=== PATIENT | female | born 1955 | race Caucasian/White ===

== ENCOUNTER 2022-02-01 14:56 | Outpatient (RCR) | payer MEDICARE, BC, SELFPAY ==
[2022-02-01] MEDS: SODIUM CHLORIDE 0.9 % (FLUSH) 10 ML SYRINGE IVF (15:28)
[2022-02-01] MEDS: HEPARIN 500 UNIT/5 ML SYRINGE IVF (15:28)
== END 2022-02-18 23:59 | disposition home or self-care (01) ==
LOC: CCIC 14:56
PROVIDERS: Visit Provider Clinical Nurse Specialist
DX: Z45.2 Encounter for adjustment and management of vascular access device (principal)
CPT/HCPCS: 99211; J1642

== ENCOUNTER 2022-04-12 16:05 | Outpatient (CLI) | payer MEDICARE, BC, SELFPAY ==
[2022-04-12 21:56] LABS: Chloride* 101 mmol/L (96-114); Sodium* 137 mmol/L (135-149)
[2022-04-12 21:57] LABS: Potassium* 4.6 mmol/L (3.6-5.1)
[2022-04-12 21:59] LABS: Creatinine* 0.9 mg/dL (0.5-1.5); Estimated Glomerular Filt Rate 71 ml/min
[2022-04-12 22:00] LABS: Blood Urea Nitrogen* 9 mg/dL (7-30); Calcium* 9.6 mg/dL (8.4-10.6); Carbon Dioxide* 27 mmol/L (20-32); Glucose* 103 mg/dL (60-115)
== END 2022-04-12 16:06 | disposition home or self-care (01) ==
PROVIDERS: Visit Provider Student in an Organized Health Care Education/Training Program
DX: M79.10 Myalgia, unspecified site (principal); R53.83 Other fatigue; Z11.9 Encounter for screening for infectious and parasitic diseases, unspecified
CPT/HCPCS: 80048; 86618

== ENCOUNTER 2022-08-08 11:30 | Outpatient (RCR) | payer MEDICARE, BC, SELFPAY ==
[2022-03-06] MEDS: HEPARIN 500 UNIT/5 ML SYRINGE IVF (14:27)
[2022-03-06] MEDS: SODIUM CHLORIDE 0.9 % (FLUSH) 10 ML SYRINGE IVF (14:28)
[2022-04-12] MEDS: SODIUM CHLORIDE 0.9 % (FLUSH) 10 ML SYRINGE IVF (14:07)
[2022-04-12] MEDS: HEPARIN 500 UNIT/5 ML SYRINGE IVF (14:07)
[2022-06-28] MEDS: HEPARIN 500 UNIT/5 ML SYRINGE IVF (14:51)
[2022-06-28] MEDS: SODIUM CHLORIDE 0.9 % (FLUSH) 10 ML SYRINGE IVF (14:51)
[2022-08-08] MEDS: SODIUM CHLORIDE 0.9 % (FLUSH) 10 ML SYRINGE IVF (11:44)
[2022-08-08] MEDS: HEPARIN 500 UNIT/5 ML SYRINGE IVF (11:44)
== END 2022-09-02 23:59 | disposition home or self-care (01) ==
LOC: CCIC 11:30
PROVIDERS: Visit Provider Clinical Nurse Specialist
DX: Z45.2 Encounter for adjustment and management of vascular access device (principal)
CPT/HCPCS: 80048; 99211; J1642

== ENCOUNTER 2023-02-27 12:45 | Outpatient (RCR) | payer MEDICARE, BC, SELFPAY ==
[2022-09-21] MEDS: SODIUM CHLORIDE 0.9 % (FLUSH) 10 ML SYRINGE IVF (13:09)
[2022-09-21] MEDS: HEPARIN 500 UNIT/5 ML SYRINGE IVF (13:09)
[2022-11-02] MEDS: SODIUM CHLORIDE 0.9 % (FLUSH) 10 ML SYRINGE IVF (15:34)
[2022-11-02] MEDS: HEPARIN 500 UNIT/5 ML SYRINGE IVF (15:34)
[2023-01-17] MEDS: HEPARIN 500 UNIT/5 ML SYRINGE IVF (13:35)
[2023-01-17] MEDS: SODIUM CHLORIDE 0.9 % (FLUSH) 10 ML SYRINGE IVF (13:35)
[2023-02-27] MEDS: HEPARIN 500 UNIT/5 ML SYRINGE IVF (12:44)
[2023-02-27] MEDS: SODIUM CHLORIDE 0.9 % (FLUSH) 10 ML SYRINGE IVF (12:44)
== END 2023-03-20 23:59 | disposition home or self-care (01) ==
LOC: CCIC 12:45
PROVIDERS: Visit Provider Clinical Nurse Specialist
DX: Z45.2 Encounter for adjustment and management of vascular access device (principal)
CPT/HCPCS: 99211; J1642

== ENCOUNTER 2023-08-19 11:30 | Outpatient (RCR) | payer MEDICARE, BC, SELFPAY ==
[2023-07-11] MEDS: SODIUM CHLORIDE 0.9 % (FLUSH) 10 ML SYRINGE IVF (14:42)
[2023-07-11] MEDS: HEPARIN 500 UNIT/5 ML SYRINGE IVF (14:43)
[2023-08-19] MEDS: HEPARIN 500 UNIT/5 ML SYRINGE IVF (12:17)
[2023-08-19] MEDS: SODIUM CHLORIDE 0.9 % (FLUSH) 10 ML SYRINGE IVF (12:17)
== END 2023-10-01 23:59 | disposition home or self-care (01) ==
LOC: CCIC 11:30
PROVIDERS: Visit Provider Clinical Nurse Specialist
DX: Z45.2 Encounter for adjustment and management of vascular access device (principal)
CPT/HCPCS: 99211; J1642

== ENCOUNTER 2024-04-02 09:00 | Outpatient (RCR) | payer MEDICARE, BC, SELFPAY ==
[2023-10-16] MEDS: SODIUM CHLORIDE 0.9 % (FLUSH) 10 ML SYRINGE IVF (14:43)
[2023-10-16] MEDS: HEPARIN 500 UNIT/5 ML SYRINGE IVF (14:43)
[2024-04-02] MEDS: HEPARIN 500 UNIT/5 ML SYRINGE IVF (09:12)
[2024-04-02] MEDS: SODIUM CHLORIDE 0.9 % (FLUSH) 10 ML SYRINGE IVF (09:12)
== END 2024-04-13 23:59 | disposition home or self-care (01) ==
LOC: CCIC 09:00
PROVIDERS: Visit Provider Clinical Nurse Specialist
DX: Z45.2 Encounter for adjustment and management of vascular access device (principal)
CPT/HCPCS: 99211; J1642

== ENCOUNTER 2024-12-17 13:45 | Outpatient (RCR) | payer MEDICARE, BC, SELFPAY ==
[2024-06-23] MEDS: HEPARIN 500 UNIT/5 ML SYRINGE IVF (11:13)
[2024-06-23] MEDS: SODIUM CHLORIDE 0.9 % (FLUSH) 10 ML SYRINGE IVF (11:13)
[2024-08-05] MEDS: SODIUM CHLORIDE 0.9 % (FLUSH) 10 ML SYRINGE IVF (13:35)
[2024-08-05] MEDS: HEPARIN 500 UNIT/5 ML SYRINGE IVF (13:35)
--- NOTE | 2024-09-11 14:31 | ONC.NURNOTE ---
Addendum entered by Love Kelley RN 09/11/24 14:44: Pt arrived at 2:30 PM. Port flush done. Original Note: Called pt today to check in after not arriving for her 1:30 port flush appointment. Invited pt to call back to re-schedule.
[2024-09-11] MEDS: HEPARIN 500 UNIT/5 ML SYRINGE IVF (14:45)
[2024-09-11] MEDS: SODIUM CHLORIDE 0.9 % (FLUSH) 10 ML SYRINGE IVF (14:45)
[2024-11-03] MEDS: SODIUM CHLORIDE 0.9 % (FLUSH) 10 ML SYRINGE IVF (11:46)
[2024-11-03] MEDS: HEPARIN 500 UNIT/5 ML SYRINGE IVF (11:46)
[2024-12-17] MEDS: HEPARIN 500 UNIT/5 ML SYRINGE IVF (13:52)
[2024-12-17] MEDS: SODIUM CHLORIDE 0.9 % (FLUSH) 10 ML SYRINGE IVF (13:52)
== END 2024-12-20 23:59 | disposition home or self-care (01) ==
LOC: CCIC 13:45
PROVIDERS: Visit Provider Clinical Nurse Specialist
DX: Z45.2 Encounter for adjustment and management of vascular access device (principal)
CPT/HCPCS: 99211; J1642